=== PATIENT | female | born 1940 | race Caucasian/White ===

== ENCOUNTER 2018-03-08 07:11 | Emergency (ER) | payer OTHER, BC ==
[~2018-03-08] VITALS: Ht 160 cm; Wt 58.9 kg
[2018-03-08 07:14] VITALS: BP 142/88
[2018-03-08] MEDS ORDERED: ULTRAM50 MG PO (08:09)
== END 2018-03-08 08:31 | disposition home or self-care (01) ==
LOC: EME 07:11
PROC: 2W39X1Z Immobilization of Left Upper Extremity using Splint (ICD-10-PCS; principal; 2018-03-08)
DX: S42.402A Unspecified fracture of lower end of left humerus, initial encounter for closed fracture (principal); W18.30XA Fall on same level, unspecified, initial encounter; Y93.01 Activity, walking, marching and hiking; Y92.009 Unspecified place in unspecified non-institutional (private) residence as the place of occurrence of the external cause; J45.909 Unspecified asthma, uncomplicated; Z90.710 Acquired absence of both cervix and uterus; Z88.2 Allergy status to sulfonamides
CPT/HCPCS: 73080; 73110; 99281; 99283